=== PATIENT | female | born 1985 | race Caucasian/White ===

== ENCOUNTER 2017-05-21 07:34 | Inpatient (IN) | payer OTHER ==
[2017-05-21] MEDS: LACTATED RINGER'S 1,000 ML IV (08:26)
[2017-05-21] MEDS ORDERED: METHYLERGONOVINE 0.2 MG INJ IM (08:30)
[2017-05-21] MEDS ORDERED: BUTORPHANOL 2 MG INJ IV (08:30)
[2017-05-21] MEDS ORDERED: CARBOPROST 250 MCG INJ IM (08:30)
[2017-05-21] MEDS ORDERED: OXYTOCIN 30 UNITS/LR 500 ML IV ×2 (08:30→10:30)
[2017-05-21] MEDS ORDERED: IBUPROFEN 600 MG TAB PO (08:30)
[2017-05-21] MEDS ORDERED: MISOPROSTOL 200 MCG TAB PR (08:30)
[2017-05-21 08:31] LABS: ADD MAN DIFF? NO
[2017-05-21 08:39] LABS: ABNORMAL IP MESSAGE 1; BASOPHILS % 0.4 % (0.0-2.0); EOSINOPHILS % 0.4 % (0.0-7.0); HEMATOCRIT 26.5 % (37.0-47.0); HEMOGLOBIN 8.1 g/dl (12.0-16.0); LYMPHOCYTES # 1.7 10^3/ul (0.8-2.9); LYMPHOCYTES % 33.9 % (15.0-51.0); MEAN CORPUSCULAR HEMOGLOBIN 22.1 pg (29.0-33.0); MEAN CORPUSCULAR HGB CONC 30.6 g/dl (32.0-37.0); MEAN CORPUSCULAR VOLUME 72.4 fl (82.0-101.0); MEAN PLATELET VOLUME 13.3 fl (7.4-10.4); MONOCYTE # 0.5 10^3/ul (0.3-0.9); MONOCYTES % 9.3 % (0.0-11.0); NEUTROPHIL # 2.8 10^3/ul (1.6-7.5); NEUTROPHILS % 55.6 % (39.0-77.0); NUCLEATED RED BLOOD CELLS% 0.6 /100WBC (0.0-0.0); PLATELET COUNT 265 10^3/UL (140-415); RED BLOOD COUNT 3.66 10^6/ul (4.20-5.40); RED CELL DISTRIBUTION WIDTH 17.3 % (11.5-14.5)
[2017-05-21 08:41] LABS: POSITIVE DIFF @See below
[2017-05-21 08:55] LABS: INR 0.89; PROTIME 12.1 Sec (11.9-14.9); PT RATIO 0.9
[2017-05-21 08:57] LABS: PARTIAL THROMBOPLASTIN TIME 26.9 Sec (25.0-35.0)
[2017-05-21 09:23] LABS: ALANINE AMINOTRANSFERASE 39 IU/L (13-69); ALBUMIN 3.4 g/dl (3.3-4.9); ALBUMIN/GLOBULIN RATIO 1.09; ALKALINE PHOSPHATASE 200 IU/L (42-121); ANION GAP 12 (8-16); ASPARTATE AMINO TRANSFERASE 38 IU/L (15-46); BILIRUBIN,INDIRECT 0.1 mg/dl (0-1.1); BILIRUBIN,TOTAL 0.1 mg/dl (0.2-1.3); BLOOD UREA NITROGEN 9 mg/dl (7-20); CALCIUM 8.7 mg/dl (8.4-10.2); CARBON DIOXIDE 22 mmol/L (21-31); CHLORIDE 110 mmol/L (97-110); CREATININE 0.59 mg/dl (0.44-1.00); GLUCOSE 78 mg/dl (70-220); SODIUM 140 mmol/L (135-144); TOTAL PROTEIN 6.5 g/dl (6.1-8.1); URIC ACID 3.4 mg/dl (3.1-7.9)
[2017-05-21 09:41] LABS: HEPATITIS B SURFACE ANTIGEN NEGATIVE (NEGATIVE)
[2017-05-21 10:46] LABS: ADD UMIC NO; UR ASCORBIC ACID NEGATIVE (NEGATIVE); UR BILIRUBIN (Dip) NEGATIVE (NEGATIVE); UR BLOOD (Dip) NEGATIVE (NEGATIVE); UR CLARITY CLEAR (CLEAR); UR COLOR YELLOW (YELLOW); UR GLUCOSE (Dip) NEGATIVE (NEGATIVE); UR KETONES (Dip) NEGATIVE (NEGATIVE); UR LEUKOCYTE ESTERASE (Dip) NEGATIVE Leu/ul (NEGATIVE); UR NITRITE (Dip) NEGATIVE (NEGATIVE); UR SPECIFIC GRAVITY (Dip) 1.013 (1.003-1.030); UR TOTAL PROTEIN (Dip) NEGATIVE (NEGATIVE); UR UROBILINOGEN (Dip) NEGATIVE (NEGATIVE)
[2017-05-21] MEDS: OXYTOCIN 30 UNITS/LR 500 ML IV ×3 (12:48→17:05)
[2017-05-21] MEDS: LIDOCAINE 1% (MPF) 30 ML INJ INJ ×2 (12:55)
[2017-05-21 15:14] LABS: RAPID PLASMA REAGIN NONREACTIVE (NR)
[2017-05-21] MEDS ORDERED: OXYCODONE/ASPIRIN (4.88/325) TAB PO (15:30)
[2017-05-21] MEDS ORDERED: ACETAMINOPHEN 325 MG TAB PO (15:30)
[2017-05-21] MEDS ORDERED: ONDANSETRON 4 MG INJ IV (15:30)
[2017-05-21] MEDS ORDERED: DIBUCAINE 1% 30 GM OINT PR (15:30)
[2017-05-21] MEDS ORDERED: HYDROCODONE/APAP (5/325) TAB PO ×2 (15:30)
[2017-05-21] MEDS: OXYCODONE/ASPIRIN (4.88/325) TAB PO (16:07)
[2017-05-21] MEDS: WITCH HAZEL/GLYCERIN PAD PR (16:08)
[2017-05-21] MEDS: LANOLIN 7 GM TUBE TOP (16:08)
[2017-05-21] MEDS: BENZOCAINE 20% 56 ML SPRAY TOP (16:08)
[2017-05-21] MEDS: IBUPROFEN 600 MG TAB PO (17:31)
[2017-05-21] MEDS: SENNA/DOCUSATE NA (8.6MG/50MG) TAB PO (20:50)
[2017-05-22] MEDS: IBUPROFEN 600 MG TAB PO ×5 (00:08→23:57)
[2017-05-22] MEDS: SENNA/DOCUSATE NA (8.6MG/50MG) TAB PO ×2 (09:20→20:23)
[2017-05-22 10:15] LABS: ADD MAN DIFF? NO
[2017-05-22 10:17] LABS: BASOPHILS % 0.2 % (0.0-2.0); EOSINOPHILS % 0.3 % (0.0-7.0); HEMATOCRIT 26.4 % (37.0-47.0); HEMOGLOBIN 7.9 g/dl (12.0-16.0); LYMPHOCYTES # 1.5 10^3/ul (0.8-2.9); LYMPHOCYTES % 14.7 % (15.0-51.0); MEAN CORPUSCULAR HEMOGLOBIN 22.3 pg (29.0-33.0); MEAN CORPUSCULAR HGB CONC 29.9 g/dl (32.0-37.0); MEAN CORPUSCULAR VOLUME 74.4 fl (82.0-101.0); MEAN PLATELET VOLUME 12.2 fl (7.4-10.4); MONOCYTE # 0.5 10^3/ul (0.3-0.9); MONOCYTES % 4.8 % (0.0-11.0); NEUTROPHIL # 8.3 10^3/ul (1.6-7.5); NEUTROPHILS % 79.4 % (39.0-77.0); PLATELET COUNT 259 10^3/UL (140-415); RED BLOOD COUNT 3.55 10^6/ul (4.20-5.40); RED CELL DISTRIBUTION WIDTH 17.2 % (11.5-14.5)
[2017-05-22 10:17] LABS: WHITE BLOOD COUNT 10.4 10^3/ul (4.8-10.8)
[2017-05-23] MEDS: IBUPROFEN 600 MG TAB PO ×2 (06:24→11:41)
[2017-05-23] MEDS: MEASLES,MUMPS,RUBELLA VACCINE INJ SC* (09:08)
[2017-05-23] MEDS: SENNA/DOCUSATE NA (8.6MG/50MG) TAB PO (09:08)
== END 2017-05-23 13:45 | disposition home or self-care (01) | DRG 775 ==
LOC: OBT 07:34 → L-D 07:34 → OBT 08:01 → L-D 07:55 → PP1 14:58
PROVIDERS: Obstetrics & Gynecology
PROC: 10E0XZZ Delivery of Products of Conception, External Approach (ICD-10-PCS; principal; 2017-05-21)
PROC: 0HQ9XZZ Repair Perineum Skin, External Approach (ICD-10-PCS; 2017-05-21)
DX: O70.0 First degree perineal laceration during delivery (principal); Z37.0 Single live birth; Z3A.38 38 weeks gestation of pregnancy
CPT/HCPCS: 80053; 81003; 84560; 85025; 85610; 85730; 86592; 86900; 86901; 87340